=== PATIENT | female | born 1945 | race Caucasian/White ===

== ENCOUNTER 2016-05-08 12:45 | Outpatient (CLI) | payer MEDICAID, BC ==
[~2016-05-08 12:45] MED LIST: MORP100T24 PO
== END 2016-05-08 20:00 | disposition home or self-care (01) ==
LOC: SCT 12:45
DX: Z12.2 Encounter for screening for malignant neoplasm of respiratory organs (principal); E04.2 Nontoxic multinodular goiter; I70.90 Unspecified atherosclerosis; I71.4 Abdominal aortic aneurysm, without rupture; R07.9 Chest pain, unspecified
CPT/HCPCS: 71250-TC

== ENCOUNTER 2016-05-22 10:50 | Outpatient (CLI) | payer BC, MEDICAID ==
[2016-05-22] MEDS ORDERED: IOHEXOL 100 ML IV ONE (11:17)
== END 2016-05-22 19:44 | disposition home or self-care (01) ==
LOC: SCT 10:50
DX: I71.4 Abdominal aortic aneurysm, without rupture (principal); N28.1 Cyst of kidney, acquired; K80.20 Calculus of gallbladder without cholecystitis without obstruction; R16.0 Hepatomegaly, not elsewhere classified
CPT/HCPCS: 74160; Q9967

== ENCOUNTER 2017-06-01 10:10 | Emergency (ER) | payer BC, MEDICAID ==
[~2017-06-01] VITALS: Ht 177.8 cm; Wt 63.5 kg
[2017-06-01 10:10] VITALS: BP_SYST 126
[2017-06-01] MEDS ORDERED: NACL 0.9% 1,000 ML IV ONE ×2 (10:16→10:45)
[2017-06-01] MEDS ORDERED: ASPIRIN 81 MG TAB.CHEW PO ONE (10:30)
[2017-06-01] MEDS ORDERED: INSULIN REGULAR, HUMAN 10 UNITS/0.1 ML INJ IVP ONE (10:45)
[2017-06-01 11:06] LABS: CALCIUM 9.7 mg/dL (8.4-11.0); POTASSIUM 4.5 mmol/L (3.5-5.1)
[2017-06-01 11:09] LABS: PROTHROMBIN TIME 10.6 SECS (9.5-12.5)
[2017-06-01 11:10] LABS: ALBUMIN 3.5 g/dL (3.4-4.8); TOTAL BILIRUBIN 0.6 mg/dL (0.0-1.0)
[2017-06-01 11:32] LABS: HEMATOCRIT 46.7 % (36-48); HEMOGLOBIN 15.1 g/dL (12.0-16.0); MEAN CORPUSCULAR HEMOGLOBIN 31 pg (27-31); MEAN CORPUSCULAR HGB CONC 32 % (32-36); MEAN CORPUSCULAR VOLUME 96 fL (79.0-98.0); RED BLOOD CELL COUNT(AUTO) 4.89 MIL/uL (4.2-6.2); RED CELL DISTRIBUTION WIDTH 12.9 % (9.0-15.0); WHITE BLOOD COUNT (AUTO) 8.4 K/uL (4.8-10.8)
[2017-06-01 11:34] LABS: BASOPHILS # (AUTO) 0.1 K/uL (0.0-0.2); BASOPHILS % (AUTO) 0.8 % (0.0-2.0); EOSINOPHILS # (AUTO) 0.2 K/uL (0.0-0.4); EOSINOPHILS % (AUTO) 1.9 % (0.0-4.0); LYMPHOCYTES # (AUTO) 1.8 K/uL (1.0-5.5); LYMPHOCYTES % (AUTO) 21.6 % (20.5-51.5); MONOCYTES # (AUTO) 0.6 K/uL (0.0-1.0); NEUTROPHILS # (AUTO) 5.7 K/uL (1.8-7.7); NEUTROPHILS % (AUTO) 68.7 % (40.0-70.0)
[2017-06-01 13:08] VITALS: BP_SYST 148
[2017-06-02 10:17] LABS: PLATELET COUNT (AUTO) 61 K/uL (130-430)
== END 2017-06-01 13:08 | disposition home or self-care (01) ==
LOC: SED 10:10
DX: R55 Syncope and collapse (principal); E11.9 Type 2 diabetes mellitus without complications; I10 Essential (primary) hypertension; F17.200 Nicotine dependence, unspecified, uncomplicated; I48.91 Unspecified atrial fibrillation; Z71.6 Tobacco abuse counseling; Z96.642 Presence of left artificial hip joint
CPT/HCPCS: 36415; 71045; 80053; 82550; 84484; 85025; 85610; 85730; 93005; 96361; 96374; 99285; J1815; J7030

== ENCOUNTER 2017-07-16 15:55 | Emergency (ER) | payer BC ==
[~2017-07-16] VITALS: Ht 175.3 cm; Wt 63.5 kg
[2017-07-16 16:03] VITALS: BP_SYST 143
[2017-07-16 16:42] LABS: BASOPHILS # (AUTO) 0.1 K/uL (0.0-0.2); BASOPHILS % (AUTO) 0.8 % (0.0-2.0); EOSINOPHILS % (AUTO) 0.1 % (0.0-4.0); HEMATOCRIT 51.8 % (36-48); HEMOGLOBIN 17.5 g/dL (12.0-16.0); LYMPHOCYTES # (AUTO) 0.3 K/uL (1.0-5.5); MEAN CORPUSCULAR HEMOGLOBIN 33 pg (27-31); MEAN CORPUSCULAR HGB CONC 34 % (32-36); MEAN CORPUSCULAR VOLUME 97 fL (79.0-98.0); MONOCYTES # (AUTO) 0.5 K/uL (0.0-1.0); MONOCYTES % (AUTO) 6.2 % (1.7-9.3); NEUTROPHILS # (AUTO) 7.3 K/uL (1.8-7.7); NEUTROPHILS % (AUTO) 88.9 % (40.0-70.0); RED BLOOD CELL COUNT(AUTO) 5.37 MIL/uL (4.2-6.2); RED CELL DISTRIBUTION WIDTH 13.4 % (9.0-15.0); WHITE BLOOD COUNT (AUTO) 8.2 K/uL (4.8-10.8)
[2017-07-16 16:46] LABS: PLATELET COUNT (AUTO) 95 K/uL (130-430)
[2017-07-16 17:02] LABS: ACETONE, SERUM NEGATIVE (NEGATIVE)
[2017-07-16 17:06] LABS: ANION GAP 13 (5-15); CALCIUM 9.1 mg/dL (8.4-11.0); CHLORIDE 100 mmol/L (98-107); CREATININE 1.08 mg/dL (0.55-1.30); GLUCOSE 359 mg/dL (70-99); POTASSIUM 4.7 mmol/L (3.5-5.1); SODIUM SERUM 137 mmol/L (136-145); UREA NITROGEN, BLOOD 41 mg/dL (8-21)
[2017-07-16 17:09] LABS: PROTHROMBIN TIME 10.4 SECS (9.5-12.5)
[2017-07-16 17:12] LABS: BILIRUBIN,URINE NEGATIVE (NEGATIVE); BLOOD, URINE NEGATIVE (NEGATIVE); CLARITY/URINE CLEAR (CLEAR); COLOR,URINE YELLOW (YELLOW); GLUCOSE,URINE 3+ (NEGATIVE); KETONES,URINE NEGATIVE (NEGATIVE); LEUKOCYTE ESTERASE ,URINE NEGATIVE (NEGATIVE); NITRITE, URINE NEGATIVE (NEGATIVE); PH,URINE 5.5 (5.0-8.0); PROTEIN URINE NEGATIVE (NEGATIVE); UROBILINOGEN,URINE 0.2 (0.2-1.0)
[2017-07-16 17:12] LABS: ALANINE AMINOTRANSFERASE 29 U/L (12-78); ALBUMIN 3.7 g/dL (3.4-4.8); ASPARTATE AMINOTRANSFERASE 9 U/L (10-37); TOTAL BILIRUBIN 1.9 mg/dL (0.0-1.0)
[2017-07-16 17:28] LABS: BACTERIA,URINE FEW /HPF (None Seen); FINE GRANULAR CASTS,URINE 0-10 /LPF (None Seen); MUCUS,URINE 1+ /LPF (None Seen); RBC,URINE 0-3 /HPF (0-3); WBC,URINE 0-3 /HPF (0-3)
[2017-07-16] MEDS ORDERED: INSULIN REGULAR, HUMAN 10 UNITS/0.1 ML INJ IVP ONE (18:30)
[2017-07-16 19:37] VITALS: BP_SYST 139
== END 2017-07-16 19:32 | disposition home or self-care (01) ==
LOC: SED 15:55
DX: E11.65 Type 2 diabetes mellitus with hyperglycemia (principal); I48.91 Unspecified atrial fibrillation; J44.9 Chronic obstructive pulmonary disease, unspecified; I10 Essential (primary) hypertension; Z90.710 Acquired absence of both cervix and uterus
CPT/HCPCS: 36415; 71045; 80053; 81000; 82009; 82550; 83880; 84484; 85025; 85610; 85730; 93005; 96374; 99285; J1815